=== PATIENT | male | born 1975 | race Caucasian/White ===

== ENCOUNTER 2022-03-13 09:35 | Emergency (ER) | payer OTHER ==
[2022-03-13] MEDS ORDERED: HYDROCODON-ACE1 EAC4 PO (11:59)
[2022-03-13] MEDS ORDERED: ZOFRAN 4 MG TAB4 MG PO (11:59)
== END 2022-03-13 12:10 | disposition home or self-care (01) ==
LOC: ER1 09:35
DX: S20.219A Contusion of unspecified front wall of thorax, initial encounter (principal); S00.212A Abrasion of left eyelid and periocular area, initial encounter; M54.2 Cervicalgia; W55.22XA Struck by cow, initial encounter
CPT/HCPCS: 70450; 71045; 72125; 99284